=== PATIENT | male | born 1970 | race African-American/Black ===

== ENCOUNTER 2024-05-02 11:33 | Emergency (ER) | payer MEDICAID ==
[~2024-05-02] VITALS: Ht 177.8 cm; Wt 75.0 kg
[2024-05-02 11:37] VITALS: BP 165/92; PULSE 71; RESP 18; TEMP 98.5; O2SAT 99
[2024-05-02] MEDS: OxyCODONE HCL/ACETAMINOPHEN 5-325 MG TABLET PO ONE (12:56)
[2024-05-02] MEDS ORDERED: OXYC-38 PO (13:22)
== END 2024-05-02 13:55 | disposition home or self-care (01) ==
LOC: EMS 11:33
DX: M79.671 Pain in right foot (principal); F17.210 Nicotine dependence, cigarettes, uncomplicated
CPT/HCPCS: 99283; 99406

== ENCOUNTER 2025-04-21 21:07 | Emergency (ER) | payer SELFPAY ==
[~2025-04-21] VITALS: Ht 177.8 cm; Wt 72.7 kg
[~2025-04-21 21:07] MED LIST: OXYC-38 PO
[2025-04-21 21:08] VITALS: BP 161/89; PULSE 90; RESP 16; TEMP 98.2; O2SAT 97
[2025-04-22] MEDS ORDERED: NYST30CR9 TP (01:29)
[2025-04-22] MEDS ORDERED: CEPH-558 PO (01:29)
== END 2025-04-22 02:30 | disposition home or self-care (01) ==
LOC: EMS 21:08
DX: L25.9 Unspecified contact dermatitis, unspecified cause (principal); B35.6 Tinea cruris; Z79.899 Other long term (current) drug therapy; Z98.890 Other specified postprocedural states
CPT/HCPCS: 99283; Z7502

== ENCOUNTER 2025-08-10 20:41 | Emergency (ER) | payer OTHER ==
[~2025-08-10] VITALS: Ht 177.8 cm; Wt 68.2 kg
[~2025-08-10 20:41] MED LIST changes: +CEPH-558 PO; +NYST30CR9 TP
[2025-08-10 20:47] VITALS: TEMP 98.8
[2025-08-10] MEDS: HYDROCODONE/ACETAMINOPHEN 5-325 MG TABLET PO ONE (22:47)
[2025-08-10] MEDS: CEPHALEXIN MONOHYDRATE 500 MG CAPSULE PO ONE (22:47)
[2025-08-10] MEDS: SULFAMETHOX/TRIMETH DS 800-160 MG/TABLET PO ONE (22:47)
[2025-08-10] MEDS ORDERED: OXYC-38 PO (22:48)
[2025-08-10] MEDS ORDERED: SULF1TAB94 PO (22:48)
[2025-08-10] MEDS ORDERED: CEPH-558 PO (22:48)
[2025-08-10 22:53] VITALS: BP 127/70; PULSE 84; RESP 16; O2SAT 100
== END 2025-08-10 22:55 | disposition home or self-care (01) ==
LOC: EMS 20:42
DX: L03.112 Cellulitis of left axilla (principal); E11.9 Type 2 diabetes mellitus without complications; F12.90 Cannabis use, unspecified, uncomplicated; F17.210 Nicotine dependence, cigarettes, uncomplicated; Z79.899 Other long term (current) drug therapy
CPT/HCPCS: 82962; 99284

== ENCOUNTER 2025-08-17 20:54 | Emergency (ER) | payer OTHER ==
[~2025-08-17] VITALS: Ht 177.8 cm; Wt 72.7 kg
[~2025-08-17 20:54] MED LIST changes: +SULF1TAB94 PO
[2025-08-17 21:13] VITALS: TEMP 97.9
[2025-08-17 22:03] LABS: PLATELET COUNT (AUTO) 209 K/uL (150-450); RED BLOOD CELL COUNT(AUTO) 4.83 MIL/uL (4.50-5.90); RED CELL DISTRIBUTION WIDTH 15.3 % (11.5-14.5); WHITE BLOOD COUNT (AUTO) 6.5 K/uL (4.5-11.0)
[2025-08-17 22:11] LABS: CALCIUM, TOTAL 9.4 mg/dL (8.8-10.5); CREATININE 0.88 mg/dL (0.60-1.30); GLOMERULAR FILTR. RATE CALC > 60 mL/min (>60); GLUCOSE,RANDOM 318 mg/dL (70-110); SODIUM SERUM 134 mmol/L (136-145); UREA NITROGEN, BLOOD 8 mg/dL (7-18)
[2025-08-18] MEDS ORDERED: METH4TAB3 PO (00:51)
[2025-08-18] MEDS ORDERED: CLIN300C58 PO (00:51)
[2025-08-18] MEDS ORDERED: PERCT PO (00:51)
[2025-08-18] MEDS: DEXAMETHASONE SOD PHOS 4 MG/ML 5 ML VIAL IM ONE (01:02)
[2025-08-18] MEDS: HYDROCODONE/ACETAMINOPHEN 5-325 MG TABLET PO ONE (01:02)
[2025-08-18 01:19] VITALS: BP 127/82; PULSE 76; RESP 15; O2SAT 99
== END 2025-08-18 01:22 | disposition home or self-care (01) ==
LOC: EMS 21:00
DX: L73.2 Hidradenitis suppurativa (principal); E11.9 Type 2 diabetes mellitus without complications; F17.210 Nicotine dependence, cigarettes, uncomplicated; F12.90 Cannabis use, unspecified, uncomplicated
CPT/HCPCS: 99283; 80048; 82962; 85025; 36415; 96372; J1100